=== PATIENT | female | born 1990 | race Caucasian/White ===

== ENCOUNTER → 2021-10-01 13:35 | Outpatient (BNVA) | payer OTHER, MEDICAID, SELFPAY | PROVIDERS: Visit Provider Counselor Professional | DX: F31.32 Bipolar disorder, current episode depressed, moderate (principal) | CPT/HCPCS: 90791 ==

== ENCOUNTER 2024-11-19 11:49 | Outpatient (CLI) | payer OTHER, SELFPAY ==
--- NOTE | 2024-11-19 11:55 | XRR_ITS ---
PROCEDURE INFORMATION: Exam: XR Left Knee Exam date and time: 11/19/2024 12:12 PM Age: 33 years old Clinical indication: Knee; Left; X1 week pain on medial side of patella, popping, worsening pain; Additional info: Knee internal derangement TECHNIQUE: Imaging protocol: Radiologic exam of the left knee. Views: 3 views. COMPARISON: No relevant prior studies available. FINDINGS: Bones/joints: No acute fracture. Normal joint alignment. No large joint effusion. There are few small patellar osteophytes. Soft tissues: Normal. XR/XR knee LT 3V* [id number] IMPRESSION: No acute osseous abnormality.
== END 2024-11-19 11:50 | disposition home or self-care (01) ==
LOC: RAD 11:50
PROVIDERS: PCP Pediatrics; Visit Provider Emergency Medicine
DX: M23.92 Unspecified internal derangement of left knee (principal); M25.762 Osteophyte, left knee
CPT/HCPCS: 73562